=== PATIENT | female | born 1945 | race Caucasian/White ===

== ENCOUNTER 2016-12-11 14:55 | Emergency (ER) | payer OTHER ==
[2016-12-11] MEDS ORDERED: IBUPROFEN 600 MG TABLET PO ONE (15:23)
--- NOTE | 2016-12-11 15:39 | CT REPORT ---
HISTORY: Follow-up with closed head injury. Dizziness. Evaluate for intracranial hemorrhage. PROCEDURE: Contiguous axial images were acquired from the vertex to the base of the skull without administration of IV contrast. Dose reduction technique was utilized. FINDINGS: Comparison is made with CT cervical spine study of same date. The current exam shows no evidence of acute intra- or extraaxial fluid collections. There is no mass effect or midline shift. There is no intraparenchymal hemorrhage. Prominent sulcal pattern is seen diffusely, consistent with age-appropriate atrophic change. There is mild ex vacuo dilatation of the lateral ventricles. Periventricular white matter changes are noted. The basilar cisterns are within normal limits. The harkins-white junction is obscured. Bone windows demonstrate no fracture. The mastoid air cells are clear. Results were communicated to the referring care provider concerning these findings at the time of dic tation. IMPRESSION: 1. No acute intracranial hemorrhage or mass. 2. Age-appropriate atrophic and small vessel ischemic change, likely chronic. If clinical concern i s for acute infarct, correlation with diffusion MRI is recommended. Final Electronic Signature: This report was electronically signed by Eugenio Sr MD on 12/11/2016 3 :37 PM. shumes /
--- NOTE | 2016-12-11 15:47 | CT REPORT ---
HISTORY: Fall with neck pain. Evaluate for fracture. TECHNIQUE: Contiguous axial images were performed of the cervical spine without the administration of IV contras t. Sagittal and coronal reformatted images were also performed. This examination was performed using automated exposure control, adjustment of mA or kV according to patient size, and/or use of iterative reconstruction technique. FINDINGS: Comparison: Comparison is made with CT brain of same date. Axial images show no acute fracture deformities involving the vertebral bodies from C1 through C7. No osseous elements are seen within the central canal. Moderate degenerative change involves the mid and lower cervical spine with anterior and posterior os teophyte formation with bilateral facet arthropathy. Sagittal images show straightening of cervical lordosis. The facets are symmetric. The posterior andreafski ents are intact. The dens is intact. Lung apices and remaining soft tissues are intact. Results were communicated to the referring care provider concerning these findings at the time of dic tation. IMPRESSION: 1. Straightening of cervical lordosis, consistent with muscular spasm, with no acute fracture. Final Electronic Signature: This report was electronically signed by Eugenio Sr MD on 12/11/2016 3 :45 PM. shumes /
--- NOTE | 2016-12-11 16:13 | ER PHYSICIAN DOCUMENTATION ---
Physician Documentation [facility] Name:Juliet Friedman Age:71 yrs Sex:Female :1945 Arrival Date:12/11/2016 Time:14:55 Bed4 Private MD:Keanu Carson EDblancaHarlan Disposition: 12/11/16 15:53 Discharged to Home/Self Care. Impression: Head Contusion, Unspecified Part of Head, Cervical Sprain. - Condition is Good. - Discharge Instructions: NECK SPRAIN/STRAIN, Acute Brain Injuries - HEAD INJURY, No Wake-Up (Adult). - Medical Reconciliation form form. - Follow up: Keanu Carson MD; When: 7 - 10 days; Reason: Recheck today's complaints, Continuance of care. - Problem is new. - Symptoms have improved. - Notes: Ice packs, rest....no driving until you feel better. Ibuprofen 400mg by mouth every 6 hours with food for 2 - 3 days... HPI: 12/11 15:00 This 71 yrs old Female presents to ER via EMS with complaints of Fall Injury. cd 15:00 Details of fall: The patient fell from a height, 18" stool. Onset: The cd symptom(s)/episode began/occurred acutely, just prior to arrival. Associated injuries: The patient sustained injury to the head, contusion, neck injury, pain with movement, tenderness. Associated signs and symptoms: The patient has no apparent associated signs or symptoms, Loss of consciousness: the patient experienced no loss of consciousness. Severity of symptoms: At their worst the symptoms were moderate, in the emergency department the symptoms are unchanged. The patient has not experienced similar symptoms in the past. Not on Anti-coagulants. Historical: - Allergies: SULFA (SULFONAMIDES); fenofibrate,micronized; fenofibrate nanocrystallized; Iclxxwq-Ydw-Fhn Reductase Inhibitor; lisinopril; guaifenesin; Glipizide; niacin; Simvastatin; Silicone; - Home Meds: 1. Insulin: Regular Sub-Q 2. Lantus Sub-Q 3. Coreg Oral - PMHx: CAD; DIABETES - IDDM; heart Disease; HYPERTENSION; OBESITY; hyperlipidemia; Precordial Chest Pain (October 03, 2015); Abdominal Pain, Epigastric (October 03, 2015); Acute Back Pain (October 03, 2015); ANGINA; CAD; DEPRESSION; Lung nodule; Anaphylaxis (August 29, 2014); Atypical Chest Pain - : Rule out IA / Hx of CAD (August 29, 2014); Dehydration (August 29, 2014); - PSHx: APPENDECTOMY; Coronary Stents; CHOLECYSECTOMY; - Tetanus: < 10 years < 10 years. - Ebola Screening: : Patient negative for fever greater than or equal to 101.5 degrees Fahrenheit, and additional compatible Ebola Virus Disease symptoms. Patient denies exposure to infectious person. Patient denies travel to an Ebola-affected area in the 21 days before illness onset. No symptoms or risks identified at this time. . - Immunization history: Unable to Obtain. - Social history: Smoking status: unknown if patient ever smoked tobacco. ROS: 15:12 Neck: Positive for pain with movement, pain at rest, bony tenderness, of the base of cd the skull. 15:12 Cardiovascular: Negative for chest pain. 15:12 Respiratory: Negative for shortness of breath. 15:12 Abdomen/GI: Negative for abdominal pain. 15:12 MS/extremity: Negative for injury or acute deformity. 15:12 Neuro: Positive for headache, Negative for altered mental status, dizziness, loss of consciousness, seizure activity, speech changes, syncope, tingling, visual changes, weakness. 15:12 All other systems are negative. Exam: 15:12 Chest/axilla: Normal chest wall appearance and motion. Nontender with no deformity. cd No lesions are appreciated. Cardiovascular: Regular rate and rhythm with a normal S1 and S2. No gallops, murmurs, or rubs. Normal PMI, no JVD. No pulse deficits. Respiratory: Lungs have equal breath sounds bilaterally, clear to auscultation and percussion. No rales, rhonchi or wheezes noted. No increased work of breathing, no retractions or nasal flaring. Abdomen/GI: Soft, non-tender, with normal bowel sounds. No distension or tympany. No guarding or rebound. No evidence of tenderness throughout. Back: No spinal tenderness. No costovertebral tenderness. Full range of motion. 15:12 Skin: Warm, dry with normal turgor. Normal color with no rashes, no lesions, and no cd evidence of cellulitis. 15:12 Constitutional: The patient appears alert, awake, anxious, obese. 15:12 Head/face: Noted is swelling, that is moderate, of the right occipital area, tenderness, that is moderate, Basilar skull fracture findings: the patient does not have obvious signs of a basilar skull fracture, no Epstein signs, no hemotympanum, no nasal drainage, no racoon eyes, hemotympanum, is not appreciated, bilaterally. 15:12 Eyes: Pupils: equal, round, and reactive to light and accomodation, Extraocular movements: intact throughout. 15:12 ENT: Exam is negative for acute changes. 15:12 Neck: External neck: tenderness, that is moderate, of the right mid cervical area and lower cervical area, C-spine: vertebral tenderness, that is moderate, appreciated at C3 and C4. 15:12 Musculoskeletal/extremity: Exam is negative for acute changes. 15:12 Neuro: Orientation: is normal, to person, place & time. Mentation: is normal, lucid, Memory: is normal, Cranial nerves: CN II- XII are normal as tested, Cerebellar function: is grossly normal, Motor: is normal, Sensation: is normal. Vital Signs: 15:00 BP 156 / 68; Pulse 79; Resp 16; Temp 97.9; Pulse Ox 94% on R/A; Weight 83.6 kg; Height st 5 ft. 4 in. (162.56 cm); Pain 5/10; 15:00 Body Mass Index 31.64 (83.60 kg, 162.56 cm) st Selin Coma Score: 15:12 Eye Response: spontaneous(4). Verbal Response: oriented(5). Motor Response: obeys cd commands(6). Total: 15. Trauma Score (Adult): 15:00 Eye Response: spontaneous(1); Verbal Response: oriented(1); Motor Response: obeys st commands(2); Systolic BP: > 89 mm Hg(4); Respiratory Rate: 10 to 29 per min(4); Selin Score: 15; Trauma Score: 12 MDM: 15:09 Patient medically screened. cd 15:20 Differential diagnosis: closed head injury, contusion, fracture, ICH, Cervical Strain. cd 15:50 Data reviewed: vital signs, nurses notes, old medical records, radiologic studies, and cd as a result, I will discharge patient. Data interpreted: Pulse oximetry: on room air is 94 %. Interpretation: normal. Counseling: I had a detailed discussion with the patient and/or guardian regarding: the historical points, exam findings, and any diagnostic results supporting the discharge/admit diagnosis, radiology results, the need for outpatient follow up, for a recheck, with the patient's primary care provider, to return to the emergency department if symptoms worsen or persist or if there are any questions or concerns that arise at home. Response to treatment: the patient's symptoms have markedly improved after treatment, the patient's condition has returned to base line, and as a result, I will discharge patient. 12/11 15:30 Order name: CAT SCAN; HEAD W/O CON [id number]; Complete Time: 10:01 EDMS 12/13 10:01 Interpretation: Normal Except: Radiologist report reviewed. No ICH, No FX + atrophy. 12/11 15:30 Order name: CAT SCAN; CERVICAL [id number]; Complete Time: 10:01 EDMS 12/13 Interpretation: Normal: Report reviewed. 12/11 15:52 Order name: Ice Packs; Complete Time: 16:08 cd Dispensed Medications: 15:25 Drug: Ibuprofen 600 mg; Route: PO; rs 16:06 Follow up: Response: No adverse reaction; Pain is decreased rs Signatures: Caitlin Beltran RN RN rs Harlan Styles MD MD
--- NOTE | 2016-12-11 16:13 | ER NURSING DOCUMENTATION ---
Nurse's Notes [facility] Name:Juliet Friedman Age:71 yrs Sex:Female :1945 Arrival Date:12/11/2016 Time:14:55 Bed4 Private MD:Keanu Carson Diagnosis:Head Contusion, Unspecified Part of Head;Cervical Sprain Presentation: 12/11 14:59 Presenting complaint: Patient states: Fell from stool and hit her head on a table. rs Denies LOC, Denies c-spine pain or tenderness. Has pain in her right posterior head and right lat neck. Also has some discomfort in her right lat ribs, states she twisted when she fell. No SOB. Care prior to arrival: IV in left FA. Mechanism of Injury: Fall. 14:59 Acuity: HELENA 3 rs 14:59 Method Of Arrival: EMS: 410 rs 14:59 Notified ED Physician of patient's arrival and CC Dr. Styles notified. rs 15:02 Acuity: HELENA 2 st 15:36 Transition of care: Home. rs Triage Assessment: 14:10 General: Appears in no apparent distress, comfortable, well developed, well nourished, rs well groomed, Behavior is cooperative, pleasant. Pain: Complains of pain in right posterior head, right lat neck, and right rib. Neuro: No deficits noted. Level of Consciousness is awake, alert, Oriented to person, place, time, event. Cardiovascular: No deficits noted. Capillary refill < 3 seconds Pulses are 3+ in left radial artery. Respiratory: No deficits noted. Respiratory effort is even, unlabored, Respiratory pattern is regular, symmetrical. Derm: No deficits noted. Skin is pink, warm & dry. Historical: - Allergies: SULFA (SULFONAMIDES); fenofibrate,micronized; fenofibrate nanocrystallized; Cbejhjd-Qxa-Yqr Reductase Inhibitor; lisinopril; guaifenesin; Glipizide; niacin; Simvastatin; Silicone; - Home Meds: 1. Insulin: Regular Sub-Q 2. Lantus Sub-Q 3. Coreg Oral - PMHx: CAD; DIABETES - IDDM; heart Disease; HYPERTENSION; OBESITY; hyperlipidemia; Precordial Chest Pain (October 03, 2015); Abdominal Pain, Epigastric (October 03, 2015); Acute Back Pain (October 03, 2015); ANGINA; CAD; DEPRESSION; Lung nodule; Anaphylaxis (August 29, 2014); Atypical Chest Pain - : Rule out [place] / Hx of CAD (August 29, 2014); Dehydration (August 29, 2014); - PSHx: APPENDECTOMY; Coronary Stents; CHOLECYSECTOMY; - Tetanus: < 10 years < 10 years. - Ebola Screening: : Patient negative for fever greater than or equal to 101.5 degrees Fahrenheit, and additional compatible Ebola Virus Disease symptoms. Patient denies exposure to infectious person. Patient denies travel to an Ebola-affected area in the 21 days before illness onset. No symptoms or risks identified at this time. . - Immunization history: Unable to Obtain. - Social history: Smoking status: unknown if patient ever smoked tobacco. Screenin:25 Abuse screen: Denies threats or abuse. Nutritional screening: No deficits noted. rs Tuberculosis screening: No symptoms or risk factors identified. 16:11 Infectious Disease Risk None. rs Primary Survey: 15:23 Airway: patent. Breathing/Chest: Respiratory pattern: regular, Respiratory effort: rs spontaneous. Circulation: Pulses: palpable left radial artery. Skin color: pink, Skin temperature: warm, dry. Secondary Survey: 15:24 HEENT: No deficits noted. Gastrointestinal: No deficits noted. : No deficits noted. rs Musculoskeletal: No deficits noted. Assessment: 15:05 General: Appears in no apparent distress, comfortable, well developed, well nourished, rs well groomed, Behavior is cooperative, pleasant. Pain: Complains of pain in right lat neck, right posterior head, right ribs. Pain currently is 5 out of 10 on a pain scale. Neuro: No deficits noted. Level of Consciousness is awake, alert, Oriented to person, place, time, event, Corrective Therapy Aide Teacher are equal bilaterally Moves all extremities. Speech is normal, Denies blurred vision numbness diplopia. Cardiovascular: No deficits noted. Capillary refill < 3 seconds Pulses are 3+ in left radial artery. Respiratory: No deficits noted. Respiratory effort is even, unlabored, Respiratory pattern is regular, symmetrical. GI: No deficits noted. Derm: Skin is pink, warm & dry. Vital Signs: 15:00 BP 156 / 68; Pulse 79; Resp 16; Temp 97.9; Pulse Ox 94% on R/A; Weight 83.6 kg; Height st 5 ft. 4 in. (162.56 cm); Pain 5/10; 15:00 Body Mass Index 31.64 (83.60 kg, 162.56 cm) st Wilson Coma Score: 15:12 Eye Response: spontaneous(4). Verbal Response: oriented(5). Motor Response: obeys cd commands(6). Total: 15. Trauma Score (Adult): 15:00 Eye Response: spontaneous(1); Verbal Response: oriented(1); Motor Response: obeys st commands(2); Systolic BP: > 89 mm Hg(4); Respiratory Rate: 10 to 29 per min(4); Wilson Score: 15; Trauma Score: 12 ED Course: 14:10 Door closed. Noise minimized. Lights dimmed. Verbal reassurance given. Warm blanket rs given. 14:56 Patient arrived in ED. ds 14:57 Keanu Carson MD is Private Physician. ds 14:59 Caitlin Beltran, FABIOLA is Primary Nurse. rs 15:[address] 15:09 Harlan Styles MD is Attending Physician. cd 15:25 Valuables Remains with patient Patient has correct armband on for positive rs identification. Placed in gown. Bed in low position. Call light in reach. Side rails up X2. Adult w/ patient. 15:27 Maintain field IV. Dressing intact. Good blood return noted. Site clean & dry. Gauge & rs site: 20 gauge in left . 15:30 CAT SCAN; HEAD W/O CON [id number] In Process Unspecified. EDMS 15:30 CAT SCAN; CERVICAL [id number] In Process Unspecified. EDMS 15:31 Patient moved back from [address]. nelson 15:52 Keanu Carson MD is Referral Physician. cd 16:00 Discontinued lock intact, bleeding controlled, pressure dressing applied, No rs redness/swelling at site. 16:11 Valuables Remains with patient. rs Administered Medications: 15:25 Drug: Ibuprofen 600 mg; Route: PO; rs 16:06 Follow up: Response: No adverse reaction; Pain is decreased rs Outcome: 15:53 Discharge ordered by MD. cd 16:09 Discharged to home ambulatory. rs 16:09 Condition: improved 16:09 Discharge instructions given to patient, Instructed on discharge instructions, follow up and referral plans. medication usage, Demonstrated understanding of instructions, medications, Prescriptions given X 1. 16:09 IV D/Manjit 16:13 Patient left the ED. rs 12/12 09:47 Discharge F/U Call: Spoke with: patient. Are you having any pain? no. Did your az1 discharge instructions answer all of your questions? yes Have you made a f/u appointment? No. Overall Care on a scale of 1-10 with 10 being the best care, you rate our care as: the rating of 10. Further F/U necessary? None needed Signatures: Dispatcher [employer] EDMS Bindu Fernando, RN Caitlin Sorensen RN RN Manju Velazquez RN RN sc1 Petrona, Nicolle, Reg Reg Harlan Bassett MD MD cd Abbott, Ирина damon
== END 2016-12-11 16:13 | disposition home or self-care (01) ==
LOC: ER 14:55
DX: S00.03XA Contusion of scalp, initial encounter (principal); S13.4XXA Sprain of ligaments of cervical spine, initial encounter; W08.XXXA Fall from other furniture, initial encounter; Y92.019 Unspecified place in single-family (private) house as the place of occurrence of the external cause; I25.10 Atherosclerotic heart disease of native coronary artery without angina pectoris; I10 Essential (primary) hypertension; E11.9 Type 2 diabetes mellitus without complications; Z79.899 Other long term (current) drug therapy; Z79.4 Long term (current) use of insulin; Z74.3 Need for continuous supervision
CPT/HCPCS: 70450; 72125; 99284; A0425; A0426